=== PATIENT | male | born 1960 | race Caucasian/White ===

== ENCOUNTER 2016-11-18 14:02 | Inpatient (IN) | payer SELFPAY ==
[~2016-11-18] VITALS: Ht 175.3 cm; Wt 87.1 kg
--- NOTE | ~2016-11-18 | HP ---
PATIENT'S NAME: ROSA MALAGON [facility] AGE: 55 Y [address] ROOM: [place] [address] LOCATION: GICU ADMIT DATE: 11/18/2016 History & Physical DISCHARGE DATE: FAMILY PHYSICIAN: PHYSICIAN, NO ATTENDING PHYSICIAN: NAHUM YEPEZ DATE OF SERVICE: CHIEF COMPLAINT: Acute GI bleed. HISTORY OF PRESENT ILLNESS: This is a 55-year-old male with a history of alcohol dependency and chronic left knee pain, who presents with hematemesis and melena x3 days. The patient reports that he started feeling sick to his stomach about 4 days ago, and shortly followed to have nausea and vomiting which was dark coffee-ground in nature, then subsequently turned out to be bright red blood. The patient continued to have this for the last 3 days, but eventually worsened and also reported having bright red blood per rectum as well. The patient also reports fatigue, dizziness, and lightheadedness during this time as well including having a near syncopal episode earlier today, sustaining some injury to his right eye area without problems with his vision. The patient tells me that over the past 2 months, he has been having increasing left knee pain and has been taking plenty of ibuprofen for his postop pain. The patient has a long history of what appears to be alcoholism and is a heavy daily drinker. The patient otherwise denies any abdominal pain, any shortness of breath, fever, or chills. PAST MEDICAL HISTORY: 1. Alcoholism. 2. Left knee pain and arthritis. SOCIAL HISTORY: The patient has a history of heavy alcohol dependency. Denies any tobacco or drug use. 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 FAMILY HISTORY: The patient denies any family history of heart disease, alcohol dependency, stroke, or diabetes. REVIEW OF SYSTEMS: All systems have been reviewed and were all negative except as described in the HPI. PATIENT'S NAME: ROSA MALAGON [facility] AGE: 55 Y [address] ROOM: [place] [address] LOCATION: GICU ADMIT DATE: 11/18/2016 History & Physical DISCHARGE DATE: FAMILY PHYSICIAN: PHYSICIAN, NO ATTENDING PHYSICIAN: NAHUM YEPEZ SIGNIFICANT LABORATORIES: Hemoglobin 6.1. PHYSICAL EXAMINATION: VITAL SIGNS: Blood pressure 111/62, heart rate 87, respiratory rate 18, and saturating 98% on room air. GENERAL: The patient awake, alert, and oriented x3, in no acute distress. HEENT: The patient exhibits dry mucosal membranes and has significant conjunctival pallor. He also has a small amount of periorbital swelling and some bruising on the upper lid of his right eye, but denies any vision problems. CHEST: Clear to auscultation bilaterally. HEART: S1 and S2. Regular rate and rhythm. ABDOMEN: Soft. Mild epigastric tenderness, but nondistended. Positive bowel sounds. NEUROLOGIC: Grossly nonfocal. MUSCULOSKELETAL: No joint tenderness, effusion, or erythema noted. SKIN: Has patchy dry scaly lesions and is known to have eczema. ASSESSMENT AND PLAN: 1. Acute gastrointestinal bleed, likely upper gastrointestinal bleeding source. Differential includes bleeding ulcer versus Katt-Valera tear. The patient to be having an esophagogastroduodenoscopy promptly in a.m. In the meantime, if the patient is hemodynamically stable, we will give 2 units of PRBCs and monitor his H and H's q.6 hours. We will also put on Protonix drip and octreotide drip as well and monitor in the intensive care unit setting. Dr. Mistry from Gastroenterology is closely following as well. 2. Acute blood loss anemia. Management as above. 3. Alcoholism. We will use CIWA protocol and manage. MD MARIANA BENNETT/rickie /[id number] D: T: [id number] HISTORY & PHYSICAL
--- NOTE | ~2016-11-18 | DS ---
PATIENT'S NAME: ROSA DEJESUS [facility] AGE: 55 Y [address] ROOM: [address] [address] LOCATION: GICU ADMIT DATE: 11/18/2016 Discharge Summary DISCHARGE DATE: 11/20/2016 FAMILY PHYSICIAN: PHYSICIAN, NO ATTENDING PHYSICIAN: Cyndy Rivera PRINCIPAL DISCHARGE DIAGNOSIS: Upper gastrointestinal hemorrhage. SECONDARY DIAGNOSES: 1. Esophageal ulcers. 2. 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 3. Katt-Valera tear. 4. Duodenitis. 5. Hiatal hernia. 6. Alcohol abuse. 7. Anemia of acute blood loss, status post transfusion of 3 units of packed red blood cells. 8. Hypophosphatemia, mild. 9. Hypokalemia, mild. 10. Hypocalcemia. CONSULTATIONS: Gastroenterology on 11/19/[address] Cat Mistry. PROCEDURES: EGD 11/19/2016, findings as in the secondary diagnoses. Please see detailed EGD procedure report. BRIEF HISTORY: Mr. Dejesus is a 55-year-old male who reports that after change in job and moving back from the [facility], he was drinking heavily, "self-medicating." He had developed nausea with some vomiting. About 4 to 5 days prior to admission, he had coffee-ground emesis, which then transitioned to be bright red. This continued for about 3 days and worsened until he had bright red blood. He has emesis and rectal bleeding as well. He presents to the emergency room with fatigue, dizziness, lightheadedness, and near syncopal episode prior to admission. In addition, he fell over, but did not lose consciousness and had minor trauma to upper and lower right eyelid he was trying to change his clothes after some of his vomiting. He was admitted and treated with IV fluids, octreotide, and Protonix drips. His initial hemoglobin was 6.1 and he was transfused prior to EGD yesterday. The EGD findings are as outlined above. He tolerated the procedure well and has had no further nausea, vomiting, or any hematemesis or hematochezia since admission. I have discussed again reviewed the findings of the EGD with Mr. Dejesus and advised him the importance of alcohol cessation and total abstinence. He was PATIENT'S NAME: ROSA DEJESUS [facility] AGE: 55 Y [address] ROOM: [id number] [place] [address] LOCATION: CU ADMIT DATE: 11/18/2016 Discharge Summary DISCHARGE DATE: 11/20/2016 FAMILY PHYSICIAN: PHYSICIAN, NO ATTENDING PHYSICIAN: Cyndy Rivera advised to avoid NSAIDs. He does report he has an old football injury and some minor pain in the left knee. He is advised to do other methods before he would take any NSAIDs and he is advised against mixing Tylenol with any alcohol intake at all. We will give him information regarding AA meetings, counseling, and support groups in [place]. CURRENT LABORATORY DATA: Reveals CBC with a white blood cell count of 4.7, hemoglobin 7.7, hematocrit 23.3, MCV is 96.7, but was 103.3 on admission, and platelets are 111, absolute neutrophil count is 3.4, neutrophils 72%, lymphs 18%, and monos 8%. Complete metabolic panel shows sodium 140, potassium 3.6, chloride 113, potassium 3.6, chloride 113, CO2 20, glucose 97, BUN 11, creatinine 0.9, albumin is 2.5, total protein 5.1, alk phos 48, AST 31, ALT 42, phosphorus is 2.0, eGFR is greater than 90, and calcium is 6.9. INSTRUCTIONS AT DISCHARGE: [place] diet with high-iron foods. Activity as tolerated. Follow up with GI for endoscopy in 6 weeks. He should have a CBC prior to the visit. I did recommend that he establish with a PCP in [place] in followup within 1 week. MEDICATIONS AT TIME OF DISCHARGE: 1. Thiamine 100 mg p.o. daily. 2. Protonix 40 mg p.o. b.i.d. 3. Niferex 1 tab p.o. b.i.d. 4. Calcium carbonate 500 mg p.o. b.i.d. CONDITION AT DISCHARGE: Good. Greater than 30 minutes was spent in counseling the patient, exam, and the discharge process. TIFF THOMAS MD LM/rickie /[id number] CC: Cat Mistry MD d: 11/21/16 0425 t: 11/23/16 1830, DISCHARGE SUMMARY
--- NOTE | ~2016-11-18 | CON ---
PATIENT'S NAME: ROSA MALAGON [facility] AGE: 55 Y [address] ROOM: [place] [address] LOCATION: GICU ADMIT DATE: 11/18/2016 Consultation DISCHARGE DATE: FAMILY PHYSICIAN: PHYSICIAN, NO ATTENDING PHYSICIAN: NAHUM YEPEZ DATE OF CONSULTATION: 11/18/2016 REFERRING PHYSICIAN: Vadim Mc MD REASON FOR CONSULTATION: Acute GI bleed. HISTORY OF PRESENT ILLNESS: This is a pleasant 55-year-old gentleman who was initially seen in the emergency room. The patient was admitted to [facility] with vomiting that he describes as dark previous, though today, changed to bright red color. He states, in quantity, he thinks he lost about a "pint." Denies any associated abdominal pain with all the episodes. He does admit to drinking 4 alcoholic beverages in the form of whisky daily and states that he has done this for "a number of years." He also takes 4 Naprosyn daily for knee pain and has also been doing this for quite some time. He denies any history of diagnosis of liver cirrhosis. Denies any history of GI bleed. The patient denies any acute chest pain, chest pressure, or shortness of breath. He does state that he is slightly dizzy with changing of positions. Denies any fever, chills, night sweats, or weight loss. He does state that he has noticed melenic stool for the past few days as well. Denies any history of upper endoscopy or colonoscopy. PAST MEDICAL HISTORY: Alcoholism and left knee pain with arthritis. SOCIAL HISTORY: The patient has heavy alcohol dependence in the form of whisky with what he states was 4 drinks per evening. Denies any tobacco or illicit drug use. FAMILY HISTORY: Denies any family history of known gastrointestinal diseases or cancers. ALLERGIES: NO KNOWN MEDICATION ALLERGIES. CURRENT MEDICATIONS: Please refer to the medication administration record. REVIEW OF SYSTEMS: PATIENT'S NAME: ROSA MALAGON [facility] AGE: 55 Y [address] ROOM: [address] [address] LOCATION: GICU ADMIT DATE: 11/18/2016 Consultation DISCHARGE DATE: FAMILY PHYSICIAN: PHYSICIAN, NO ATTENDING PHYSICIAN: GEBREMICHAEL,BARKOT An all-point review of systems was completed, all were negative except for those identified in the History of Present Illness. PHYSICAL EXAMINATION: GENERAL: A pleasant 55-year-old gentleman, lying in bed, who appears to be in no acute distress. VITAL SIGNS: Temperature 98.5, pulse of 97, respirations of 19, blood pressure 110/53, and oxygen saturation is 94%. The patient does appear to be hemodynamically stable. SKIN: Browns, warm, and dry. No jaundice. HEENT: Head is normocephalic and atraumatic. Pupils equal, round, and reactive to light. Sclerae are clear, nonicteric. Oral mucosa is pink and moist. No thyromegaly. NECK: Soft and supple. CARDIOVASCULAR: Regular. Normal S1 and S2. RESPIRATORY: Respirations even and unlabored. Lungs are clear to auscultation. ABDOMEN: Soft, round, nontender, and nondistended. Bowel sounds are positive. MUSCULOSKELETAL: No muscle weakness or atrophy. EXTREMITIES: No edema. NEUROLOGIC: Grossly nonfocal. LABORATORY AND DIAGNOSTIC DATA: On evaluation in [facility] Emergency Room, the patient was found to have a hemoglobin of 6.1 and hematocrit of 18.7. Chemistry panel included a glucose of 243, BUN of 24, creatinine of 1.4, sodium 136, potassium of 3.3, chloride of 101, and CO2 of 16. Albumin of 3.0. AST of 40, ALT of 60, and alkaline phosphatase of 50. Total bilirubin 0.4. ASSESSMENT AND PLAN: Again, this is a pleasant 55-year-old gentleman who was evaluated in the emergency room after being seen for vomiting of bright red blood as well as melenic stool. At this time, the patient will be admitted to Intensive Care under the Hospitalist Service. The patient will be kept n.p.o. We will place the patient on Protonix drip in lieu of his history of Naprosyn use. He will also be placed on IV octreotide secondary to his history of alcoholism to cover possible varices. He will be given Rocephin IV to prevent infection. We will plan on going forth with an upper endoscopy for further evaluation of the patient's gastrointestinal bleed. Procedure, risks, benefits, and alternatives were discussed with the patient per Dr. Cat Mistry. He verbalizes understanding. Further recommendations to be given status post upper endoscopy. Thank you for this consult. PATIENT'S NAME: ROSA MALAGON [facility] AGE: 55 Y [address] ROOM: [place] [address] LOCATION: [facility] ADMIT DATE: 11/18/2016 Consultation DISCHARGE DATE: FAMILY PHYSICIAN: PHYSICIANSOFIE ATTENDING PHYSICIAN: NAHUM YEPEZ JOSI ARRIOLA APRN FOR MD MARIA DEL CARMEN DYKES/modl /[id number] d: 11/19/16 1134 t: 11/24/16 1810, CONSULTATION REPORT
--- NOTE | ~2016-11-18 | ER ---
PATIENT'S NAME: ROSA DEJESUS [facility] AGE: 55 Y [address] ROOM: [place] [address] LOCATION: GICU ADMIT DATE: 11/18/2016 ER/Outpatient Report DISCHARGE DATE: FAMILY PHYSICIAN: PHYSICIAN, NO ATTENDING PHYSICIAN: NAHUM RIVERA CHIEF COMPLAINT: Vomiting blood. HISTORY OF PRESENT ILLNESS: Mr. Dejesus presents for evaluation of vomiting blood. He states he has been vomiting every day since Wednesday. The vomit has become more more dark, and today it was bright red. He thinks it was about a pint. He denies any abdominal pain with this during all episodes. He denies fevers or chills. He has not had diarrhea and has been having regular bowel movements, but they have become quite a bit darker of late. He states that he takes 4 naproxen daily for his knee pain, and he has been doing so for quite a while and also drinks 4 alcoholic drinks daily for at least the last year and does not know from before then. He has a history of surgery as a kid and does not know what it was but denies any active medical problems but also does not follow with any physicians. He is originally from the [facility] and [facility], and then he has moved out here 3 years ago for the lifestyle change. PAST MEDICAL HISTORY: Documented on the record and reviewed by me. SOCIAL HISTORY: Documented on the record and reviewed by me. MEDICATIONS: Documented on the record and reviewed by me. ALLERGIES: DOCUMENTED ON THE RECORD AND REVIEWED BY ME. REVIEW OF SYSTEMS: All systems reviewed and negative except as noted in the HPI. PHYSICAL EXAMINATION: VITAL SIGNS: Blood pressure 143/66, pulse 118, respiratory rate 16, temp 96.7, SpO2 is 100% on room air. Pain 0/10. GENERAL: An age-appropriate male, recumbent on exam table. Dried blood around the mouth and on the clothes, but no active vomiting. No apparent pain or distress. NEUROLOGIC: Awake and alert. GCS 15. No focal deficits. No asymmetry. PATIENT'S NAME: ROSA DEJESUS [facility] AGE: 55 Y [address] ROOM: [place] [address] LOCATION: GICU ADMIT DATE: 11/18/2016 ER/Outpatient Report DISCHARGE DATE: FAMILY PHYSICIAN: PHYSICIAN, NO ATTENDING PHYSICIAN: NAHUM RIVERA HEENT: Normocephalic, atraumatic. Eyes are PERRL but right lid has some ecchymosis, unclear etiology, no evidence of ocular involvement. Nasal mucosa moist and pink without bleeding. The oral mucosa is moist and pink. Dried blood on the teeth. No bright red blood visible. No clots. Some dried blood around the mouth. NECK: Supple. Trachea is midline. CHEST: Heart is tachycardic. No murmurs. LUNGS: Clear to auscultation bilateral. ABDOMEN: Soft, nontender, and nondistended. No rebound or guarding. BACK: Normal to inspection. EXTREMITIES: Warm, well formed, well perfused with no deformities or edema. SKIN: Clean, dry, and intact with eczematous rash over the trunk. RECTAL: Normal external anus. Normal sphincter tone. No obvious masses or fluctuance. No bright red blood. Stool is dark and tarry. no tenderness. LABORATORY DATA AND X-RAYS: No imaging was obtained for this patient currently. Labs are notable for the following: Sodium 136, potassium 3.3, chloride is 101, CO2 is 16, BUN is 24, creatinine 1.4. GFR 57. LFTs without significant abnormality. Amylase and lipase are within normal limits. Hemoccult test is positive. Stool is dark red. Serum alcohol is undetectable. Lactate is 12.0. CBC: White count is 13.7 with 7.7 neutrophils, 4.4 lymphs, 1.3 monos. Hemoglobin is 6.1 with an MCV of 103.3, and platelets of 251. IMPRESSION: 1. Upper gastrointestinal bleed. 2. Mild azotemia, unclear etiology. 3. Anemia, symptomatic with tachycardia. EMERGENCY DEPARTMENT COURSE: The patient was seen and evaluated at bedside. He was determined to have GI bleeding based on history and physical exam. He was found to be tachycardic. Volume expansion was initiated. Based on his history, suspicion for upper GI bleed was strong. Rocephin and pantoprazole were given empirically. Upon receipt of his hemoglobin being low, we initiate consult with GI, and they are recommending octreotide and did evaluate the patient at bedside. The patient remained otherwise hemodynamically stable. He was typed and screened for 2 units of packed red blood cells. I received permission to transfuse blood verbally from the patient. I did explain risks and benefits. He will be admitted to the intensive care unit under the care of Dr. Rivera with Dr. Mistry. Professional Bass Fisher, consulting for management of GI bleeding. PATIENT'S NAME: ROSA DEJESUS [facility] AGE: 55 Y [address] ROOM: [place] [address] LOCATION: GICU ADMIT DATE: 11/18/2016 ER/Outpatient Report DISCHARGE DATE: FAMILY PHYSICIAN: PHYSICIAN, NO ATTENDING PHYSICIAN: NAHUM RIVERA MD DOMINIC COY/rickie /[id number] d: 11/18/16 2357 t: 11/23/16 0750, OUTPATIENT REPORT
[2016-11-18 14:26] LABS: BASOPHIL # 0.1 K/uL (0.0-0.2); BASOPHIL % 0.4 %; EOSINOPHIL # 0.1 K/uL (0.0-0.5); EOSINOPHIL % 0.4 %; HEMATOCRIT 18.7 % (37.0-53.0); HEMOGLOBIN 6.1 g/dL (12.0-17.0); IMMATURE GRANULOCYTE # 0.2 K/uL (0.0-0.3); IMMATURE GRANULOCYTE % 1.5 %; LYMPHOCYTE # 4.4 K/uL (0.8-4.0); LYMPHOCYTE % 32.3 %; MCH 33.7 pg (27.0-34.0); MCHC 32.6 gm/dL (32.0-36.5); MCV 103.3 fl (83.0-98.0); MONOCYTE # 1.3 K/uL (0.0-1.0); MONOCYTE % 9.6 %; MPV 10.5 fl (9.4-12.4); NEUTROPHIL # (ANC) 7.7 K/uL (1.4-9.0); NEUTROPHIL % 55.8 %; NRBC % 0.3 /100WBC (0-0.00); PLATELET COUNT 251 K/uL (150-450); RBC 1.81 M/uL (4.00-6.00); RDW-CV 13.8 % (11.9-14.6); WBC 13.7 K/uL (4.0-11.0)
[2016-11-18 14:44] LABS: ANION GAP 22.3 (10.0-19.0); CALCIUM 7.6 mg/dL (8.5-10.5); CREATININE 1.4 mg/dL (0.6-1.3); POTASSIUM 3.3 mMol/L (3.7-5.1); TOTAL BILIRUBIN 0.4 mg/dL (0.0-1.5); TOTAL PROTEIN 5.6 g/dL (6.0-8.4)
--- NOTE | 2016-11-18 17:10 | NUR ---
SIGNIFICANT EVENT: PATIENT ARRIVED TO ICU AT 1545. ALERT, ORIENTED X3. OPENS EYES SPONT AND TO VOICE. PUPILS EQUAL AND REACTIVE. SPEECH IS CLEAR. APPROPRIATELY CONVERSATIONAL. PATIENT MOVES ALL 4 EXTREMITIES SPONTANEOAULY AND TO COMMANDS. EQUAL STRENGTH THROUGHOUT. COMPLAINS OF OCCASIONAL DIZZINESS. DENIES ANY NUMBNESS, TINGLING, PAIN, OR HEADACHES. PATIENT HAS BEEN IN SINUS RHYTHM, HR 70-90S. PULSES PALPABLE THROUGHOUT. SLIGHTLY HYPOTENSIVE, SBP 90S, MAP>65. NS AT 150 ML/HR AND 2 UNITS OF BLOOD TRANSFUSED. AFBERILE. PATIENT IS ON ROOM AIR, LUNGS CLEAR THROUGHOUT. SATS UPPER 90S. BOWEL SOUNDS PRESENT, NO BM IN ICU, BLOODY BM IN ED. NO URINE OUTPUT THE PAST 2 HOURS WHILE IN ICU. SKIN ISSUES DOCUMENTS. 2 PIV, PROTONIX, OCTREOTIDE, AND NS INFUSING PER MD ORDER. FOLLOW UP: CONT TO MONITOR. EGD IN AM
[2016-11-18 19:01] LABS: BICARBONATE 25.4 mmol/L (18.0-23.0); PCO2 46 mmHg (35-45)
[2016-11-18 19:02] LABS: PO2 46 mmHg (80-90)
--- NOTE | 2016-11-18 20:03 | NUR ---
DR. YEPEZ NOTIFIED THAT PATIENT STATES HE FELL YESTERDAY AND PUBPED HIS HEAD. MD AWARE. NO NEW ORDERS.
[2016-11-18] MEDS ORDERED: ADVIL200 MG PO (20:09)
[2016-11-18 20:22] LABS: HEMATOCRIT 21.1 % (37.0-53.0); HEMOGLOBIN 7.3 g/dL (12.0-17.0)
[2016-11-18 23:50] LABS: BILIRUBIN URINE NEGATIVE (NEGATIVE); BLOOD URINE NEGATIVE /UL (NEGATIVE); COLOR URINE YELLOW (YELLOW); GLUCOSE URINE NEGATIVE (NEGATIVE); KETONE URINE 15 mg/dL (NEGATIVE); LEUKOCYTES URINE NEGATIVE /UL (NEGATIVE); NITRITE URINE NEGATIVE (NEGATIVE); PROTEIN URINE NEGATIVE (NEGATIVE); TURBIDITY URINE CLEAR (CLEAR); UROBILINOGEN URINE 1 mg/dL (NORMAL)
[2016-11-19 02:10] LABS: HEMATOCRIT 20.1 % (37.0-53.0)
[2016-11-19 02:37] LABS: ALBUMIN 2.5 gm/dL (3.5-5.0); ALK PHOS 41 IU/L (33-138); ALT 43 IU/L (12-78); ANION GAP 11.4 (10.0-19.0); AST 26 IU/L (10-40); BLOOD UREA NITROGEN 17 mg/dL (6-24); CHLORIDE 109 mMol/L (96-110); CO2 23 mMol/L (22-32); CREATININE 0.9 mg/dL (0.6-1.3); MAGNESIUM 2.1 mg/dL (1.8-2.6); POTASSIUM 3.4 mMol/L (3.7-5.1); SODIUM 140 mMol/L (135-145)
[2016-11-19 02:51] LABS: CALCIUM 6.6 mg/dL (8.5-10.5); TOTAL BILIRUBIN 0.5 mg/dL (0.0-1.5); TOTAL PROTEIN 4.9 g/dL (6.0-8.4)
--- NOTE | 2016-11-19 05:36 | NUR ---
Significant Event: Patient is alert and oriented x 3. VSS on RA. Follows commands. Moves all extremities spontaneously. PERRLA. Denies any numbness/tingling. Abrasion to right eye, swollen. No bloody stools or vomit this shift. Became NPO at 0400 this am. Voids per urinal. Right hand IV with NS with 20 meq of KCL running at 150 ml/hr x 1 liter, to restart NS at 150 ml/hr after the liter is complete. Octreotide gtt running at 12.5 ml/hr in right hand IV. Right thumb IV with Protonix gtt running at 10 ml/hr. Left AC IV running with 1 unit of PRBCs at 100 ml/hr. To tranfuse over 4 hours. H&H to be rechecked one hour after tranfusion is complete. Then to call MD with results and have them decide how often to check H&H. Denies any pain. On CIWAA scoring, no withdrawal symptoms noted. Patient is pleasant and cooperative with cares. Follow up: EGD this am.
--- NOTE | 2016-11-19 15:34 | NUR ---
Introduced self and CM role to Isac and his mom who was at bedside. Isac tells me that he lives here in [place] and plans to return there whenever he is able to do so. He does not have a PCP. Asked if he would like for me to help him establish one before he dismisses and he tells me "no that is something that I can work with my family with and I will set up myself if I see fit." Let him know that this was fine. Offered to leave him a list of the [facility] MDs so he could potentially pick from those, but he delcined my offer in this as well. Talked with Isac about his drinking and pain medication usage and offered to give him resources for this. He again denies needing any stating that "I don't have any issues or whatever you think this is and I certainly don't need to go to rehab or anything else for it. I can have a beer if I want to have a beer and that isn't your choice to make." Let him know that I wasn't trying to offend him in anyway, I was just trying to provide him with resources if he should ever need them. He reports to me that he doesn't take any medications at baseline, but if he has to get any when he leaves here he won't have any issues getting them filled. Denies any needs for DME or HHC when dismissed. Left CM name on his whiteboard incase any other questions come up. CM to continue to follow and assist. Plan home.
[2016-11-19 15:58] LABS: HEMOGLOBIN 8.4 g/dL (12.0-17.0)
[2016-11-19 15:59] LABS: HEMATOCRIT 24.3 % (37.0-53.0)
--- NOTE | 2016-11-19 19:46 | NUR ---
PATIENT ALERT AND ORIENTED. DENIES HEADACHE, NUMBNESS, TINGLING, DIZZINESS. OBEYS COMMANDS. MOVES EXTREMITIES SPONTANEOUSLY. HRs 50-60, SBP 110s, NO EDEMA PRESENT. PATIENT ON ROOM AIR, LUNG SOUNDS CLEAR AND DIMINISHED. VOIDS PER THE URINAL. ECZEMA NOTED ON LEFT FLANK, LOWER EXTREMITIES, UPPER EXTREMITIES. R) HAND IV AND L) AC IV. EGD PERFORMED TODAY. TOTAL OF 3 UNITS OF PRBCs GIVEN DURING HOSPITAL STAY. RESUME REGULAR DIET.
[2016-11-20 00:29] LABS: HEMATOCRIT 22.6 % (37.0-53.0); HEMOGLOBIN 7.6 g/dL (12.0-17.0)
[2016-11-20 05:34] LABS: BASOPHIL % 0.4 %; EOSINOPHIL # 0.1 K/uL (0.0-0.5); EOSINOPHIL % 1.3 %; HEMATOCRIT 23.3 % (37.0-53.0); IMMATURE GRANULOCYTE % 0.6 %; LYMPHOCYTE # 0.8 K/uL (0.8-4.0); LYMPHOCYTE % 17.6 %; MONOCYTE # 0.4 K/uL (0.0-1.0); MONOCYTE % 7.9 %; MPV 10.7 fl (9.4-12.4); NEUTROPHIL # (ANC) 3.4 K/uL (1.4-9.0); NEUTROPHIL % 72.2 %; NRBC % 0 /100WBC (0-0.00); WBC 4.7 K/uL (4.0-11.0)
[2016-11-20 05:41] LABS: HEMOGLOBIN 7.7 g/dL (12.0-17.0); MCV 96.7 fl (83.0-98.0); PLATELET COUNT 111 K/uL (150-450); RBC 2.41 M/uL (4.00-6.00); RDW-CV 16.5 % (11.9-14.6)
[2016-11-20 05:43] LABS: ALBUMIN 2.5 gm/dL (3.5-5.0); ALK PHOS 48 IU/L (33-138); ALT 42 IU/L (12-78); ANION GAP 10.6 (10.0-19.0); AST 31 IU/L (10-40); BLOOD UREA NITROGEN 11 mg/dL (6-24); CHLORIDE 113 mMol/L (96-110); CO2 20 mMol/L (22-32); CREATININE 0.9 mg/dL (0.6-1.3); POTASSIUM 3.6 mMol/L (3.7-5.1); SODIUM 140 mMol/L (135-145); TOTAL BILIRUBIN 0.5 mg/dL (0.0-1.5); TOTAL PROTEIN 5.1 g/dL (6.0-8.4)
[2016-11-20 05:44] LABS: CALCIUM 6.9 mg/dL (8.5-10.5)
--- NOTE | 2016-11-20 07:35 | NUR ---
Significant Event: PATIENT ALERT AND ORIENTED X3, FOLLOWS ALL COMMANDS, DENIES NUMBNESS/TINGLING THROUGHOUT. AFEBRILE. VITAL SIGNS WITHIN DESIGNATED PARAMETERS. CONTINUES ON ROOM AIR. VOIDING PER URINAL. GOOD PO INTAKE. PATIENT REPORTS FLATUS WITH NO BOWEL MOVEMENT. NO NAUSEA/VOMITING. PIV X2. NS AT 150ML/HR. Follow up: CHANGE STATUS?
[2016-11-20] MEDS ORDERED: THIAMINE HCL100 MG PO (10:24)
[2016-11-20] MEDS ORDERED: PROTONIX40 MG PO (10:24)
[2016-11-20] MEDS ORDERED: NIFEREX-150) (150 MG PO (10:25)
[2016-11-20] MEDS ORDERED: OSCAL500 MG PO (10:26)
--- NOTE | 2016-11-20 12:46 | NUR ---
Significant Event: PT A&O x3. VSS, on room air. Denies nausea, stomach pain, no emesis or diarrhea or bloody stools. PT c/o sore throat, encouraged sips of water. Swelling to R)eye. PT up ad rober in room. IVx2 dc'd. Dismissal instructions/prescriptions given to patient, voiced understanding. PT wheeled to front lobby and dismissed to home by nurse. Follow up:
== END 2016-11-20 11:15 | disposition disaster alternative care site (69) | DRG 369 ==
LOC: GMED 14:02 → GICU 14:56
PROVIDERS: Internal Medicine; Nurse Practitioner Family; ADMIT Internal Medicine
PROC: 30233N1 Transfusion of Nonautologous Red Blood Cells into Peripheral Vein, Percutaneous Approach (ICD-10-PCS; principal; 2016-11-18)
PROC: 0DJ08ZZ Inspection of Upper Intestinal Tract, Via Natural or Artificial Opening Endoscopic (ICD-10-PCS; 2016-11-19)
DX: K22.6 Gastro-esophageal laceration-hemorrhage syndrome (principal); D62 Acute posthemorrhagic anemia; K22.11 Ulcer of esophagus with bleeding; E83.51 Hypocalcemia; E83.39 Other disorders of phosphorus metabolism; K29.80 Duodenitis without bleeding; K44.9 Diaphragmatic hernia without obstruction or gangrene; E87.6 Hypokalemia; F10.20 Alcohol dependence, uncomplicated; R55 Syncope and collapse; M25.562 Pain in left knee; S00.211A Abrasion of right eyelid and periocular area, initial encounter; Z87.828 Personal history of other (healed) physical injury and trauma; W18.30XA Fall on same level, unspecified, initial encounter
CPT/HCPCS: C9113; G0480; J0610; J0696; J2354; J2704; J3480; J7030; J7040; J7050; P9016